=== PATIENT | female | born 1985 | race African-American/Black ===

== ENCOUNTER 2016-11-04 18:06 | Observation (INO) | payer MEDICAID ==
[2016-11-04] VITALS (12 sets, daily range): BP systolic 114–155; BP diastolic 58–96; PULSE 93–191; RESP 15–34; TEMP 98–98.3; O2SAT 95–100
[~2016-11-04] VITALS: Ht 160 cm; Wt 105.0 kg
[~2016-11-04 18:06] MED LIST: ALBU8I INH; NAPR-503 PO; PRED20 PO
[2016-11-04] MEDS ORDERED: SODIUM CHLORIDE 0.9% FLUSH 5 ML FLUSH IVF PRN (18:30)
[2016-11-04] MEDS ORDERED: methylPREDNISolone SOD SUCC 125 MG/2 ML VIAL IVP ONE (18:30)
[2016-11-04] MEDS ORDERED: VENTAER INH (18:32)
[2016-11-04] MEDS: RESP: ALBUTEROL 2.5 MG/IPRATROPIUM 0.5 MG NEB (SCH) INH (18:35)
--- NOTE | 2016-11-04 18:37 | PD ---
HPI Chief Complaint: Respiratory Symptoms Time Seen by Provider: 18:33 Travel History International Travel<30 days: No Contact w/Intl Traveler<30days: No Traveled to known affect area: No History of Present Illness HPI Patient is a 31-year-old female presenting to emergency for evaluation of shortness of breath, cough. Patient states she wasn't feeling well last night, the coughing and the shortness of breath was worse this morning and has progressed throughout the day. She reports chest pain with coughing. She denies any nausea, vomiting, fevers, diarrhea, abdominal pain. Patient reports a history of asthma and has been using her inhaler all day with no significant improvement in her symptoms. The last time she used it was 30 minutes prior to arrival in the medical bed. [facility] Past Medical History Asthma: Yes Thyroid Disease: Yes ?: Not : 5 Para: 4 Miscarriage: 1 Tubal Ligation: Yes Past Surgical History Section: Yes (2) Social History Alcohol Use: Yes (OCC) Tobacco Use: No Substance Use: Yes Allergies-Medications (Allergen,Severity, Reaction): Coded Allergies: Iodine (Verified Allergy, Severe, 11/04/16) Latex (Verified Allergy, Severe, 11/04/16) Shellfish (Verified Allergy, Severe, 11/04/16) Reported Meds & Prescriptions Reported Meds & Active Scripts Active Reported Ventolin Hfa 18 GM Inh (Albuterol Sulfate) 90 Mcg/Act Aer 1 Puff INH Q4H PRN Review of Systems Except as stated in HPI: all other systems reviewed are Neg General / Constitutional: Positive: Chills, Other (hot and cold flashes) HENT: No: Headaches, Lightheadedness Cardiovascular: Positive: Tachycardia, No: Chest Pain or Discomfort, Dyspnea on exertion Respiratory: Positive: Cough, Shortness of Breath, Wheezing, Pleuritic Pain Gastrointestinal: No: Nausea, Vomiting, Diarrhea, Abdominal Pain Musculoskeletal: No: Myalgias Neurologic: No: Dizziness, Focal Abnormalities Physical Exam Narrative GENERAL: Well developed, well-nourished, alert female. No acute distress SKIN: Warm and dry. HEAD: Atraumatic. Normocephalic. EYES: Pupils equal and round. No scleral icterus. No injection or drainage. ENT: No nasal bleeding or discharge. Mucous membranes pink and moist. NECK: Trachea midline. No JVD. CARDIOVASCULAR: Tachycardic. No murmur appreciated. RESPIRATORY: No accessory muscle use. Tachypneic, diminished in bases with scattered expiratory wheezing. GASTROINTESTINAL: Abdomen soft, non-tender, nondistended. Hepatic and splenic margins not palpable. MUSCULOSKELETAL: No obvious deformities. No clubbing. No cyanosis. No edema. NEUROLOGICAL: Awake and alert. No obvious cranial nerve deficits. Motor grossly within normal limits. Normal speech. PSYCHIATRIC: Appropriate mood and affect; insight and judgment normal. Data Data Last Documented VS Vital Signs Date Time Temp Pulse Resp B/P Pulse Ox O2 Delivery O2 Flow Rate FiO2 11/04/16 20:08 120 18 126/61 97 Room Air 11/04/16 18:36 21 11/04/16 18:11 98.3 Orders Complete Blood Count With Diff (11/04/16 18:30) Comprehensive Metabolic Panel (11/04/16 18:30) D-Dimer (11/04/16 18:30) Magnesium (Mg) (11/04/16 18:30) Influenzae A/B Antigen (11/04/16 18:30) Iv Access Insert/Monitor (11/04/16 18:30) Electrocardiogram (11/04/16 18:30) Ecg Monitoring (11/04/16 18:30) Oximetry (11/04/16 18:30) Chest, Single Ap (11/04/16 18:30) Sodium Chloride 0.9% Flush (Ns Flush) (11/04/16 18:30) Methylprednisolone So Succ Inj (Solumedr (11/04/16 18:30) Albuterol-Ipratropium Neb (Duoneb Neb) (11/04/16 18:30) Lactic Acid (11/04/16 18:39) Ckmb (Isoenzyme) Profile (11/04/16 18:54) Troponin I (11/04/16 18:54) B-Type Natriuretic Peptide (11/04/16 18:54) Thyroid Stimulating Hormone (11/04/16 18:54) Free Thyroxine (T4) (11/04/16 18:54) Diltiazem Inj (Cardizem Inj) (11/04/16 19:00) Ondansetron Inj (Zofran Inj) (11/04/16 19:00) Sodium Chlor 0.9% 1000 Ml Inj (Ns 1000 M (11/04/16 19:00) CKMB (11/04/16 18:30) CKMB% (11/04/16 18:30) Sodium Chlor 0.9% 1000 Ml Inj (Ns 1000 M (11/04/16 20:45) Blood Culture (11/04/16 20:40) Ceftriaxone Inj (Rocephin Inj) (11/04/16 20:40) Azithromycin Inj (Zithromax Inj) (11/04/16 20:40) Admit Order (Ed Use Only) (11/04/16 21:03) Labs Laboratory Tests Test 11/04/16 18:30 White Blood Count 5.1 TH/MM3 Red Blood Count 5.11 MIL/MM3 Hemoglobin 12.4 GM/DL Hematocrit 38.7 % Mean Corpuscular Volume 75.8 FL Mean Corpuscular Hemoglobin 24.2 PG Mean Corpuscular Hemoglobin 32.0 % Concent Red Cell Distribution Width 14.0 % Platelet Count 160 TH/MM3 Mean Platelet Volume 9.8 FL Neutrophils (%) (Auto) 54.7 % Lymphocytes (%) (Auto) 26.5 % Monocytes (%) (Auto) 16.2 % Eosinophils (%) (Auto) 2.2 % Basophils (%) (Auto) 0.4 % Neutrophils # (Auto) 2.8 TH/MM3 Lymphocytes # (Auto) 1.4 TH/MM3 Monocytes # (Auto) 0.8 TH/MM3 Eosinophils # (Auto) 0.1 TH/MM3 Basophils # (Auto) 0.0 TH/MM3 CBC Comment AUTO DIFF Differential Comment AUTO DIFF CONFIRMED D-Dimer Quantitative (PE/DVT) 0.31 MG/L FEU Sodium Level 136 MEQ/L Potassium Level 3.6 MEQ/L Chloride Level 103 MEQ/L Carbon Dioxide Level 23.9 MEQ/L Anion Gap 9 MEQ/L Blood Urea Nitrogen 5 MG/DL Creatinine 0.66 MG/DL Estimat Glomerular Filtration 126 ML/MIN Rate Random Glucose 135 MG/DL Lactic Acid Level 2.4 mmol/L Calcium Level 8.8 MG/DL Magnesium Level 1.8 MG/DL Total Bilirubin 0.2 MG/DL Aspartate Amino Transf 16 U/L (AST/SGOT) Alanine Aminotransferase 21 U/L (ALT/SGPT) Alkaline Phosphatase 125 U/L Total Creatine Kinase 110 U/L Creatine Kinase MB LESS THAN 0.5 NG/ML Troponin I 0.02 NG/ML B-Type Natriuretic Peptide 126 PG/ML Total Protein 8.5 GM/DL Albumin 3.1 GM/DL Free Thyroxine 2.36 NG/DL Thyroid Stimulating Hormone LESS THAN 3rd Gen 0.005 uIU/ML MDM Medical Decision Making Medical Screen Exam Complete: Yes Emergency Medical Condition: Yes Interpretation(s) Last Impressions Chest X-Ray 11/04/16 1830 Signed Impressions: Service Date/Time: Friday, November 04, 2016 18:44 - CONCLUSION: Normal examination. Dino Gutierrez MD Laboratory Tests Test 11/04/16 18:30 White Blood Count 5.1 TH/MM3 Red Blood Count 5.11 MIL/MM3 Hemoglobin 12.4 GM/DL Hematocrit 38.7 % Mean Corpuscular Volume 75.8 FL Mean Corpuscular Hemoglobin 24.2 PG Mean Corpuscular Hemoglobin 32.0 % Concent Red Cell Distribution Width 14.0 % Platelet Count 160 TH/MM3 Mean Platelet Volume 9.8 FL Neutrophils (%) (Auto) 54.7 % Lymphocytes (%) (Auto) 26.5 % Monocytes (%) (Auto) 16.2 % Eosinophils (%) (Auto) 2.2 % Basophils (%) (Auto) 0.4 % Neutrophils # (Auto) 2.8 TH/MM3 Lymphocytes # (Auto) 1.4 TH/MM3 Monocytes # (Auto) 0.8 TH/MM3 Eosinophils # (Auto) 0.1 TH/MM3 Basophils # (Auto) 0.0 TH/MM3 CBC Comment AUTO DIFF Differential Comment AUTO DIFF CONFIRMED D-Dimer Quantitative (PE/DVT) 0.31 MG/L FEU Sodium Level 136 MEQ/L Potassium Level 3.6 MEQ/L Chloride Level 103 MEQ/L Carbon Dioxide Level 23.9 MEQ/L Anion Gap 9 MEQ/L Blood Urea Nitrogen 5 MG/DL Creatinine 0.66 MG/DL Estimat Glomerular Filtration 126 ML/MIN Rate Random Glucose 135 MG/DL Lactic Acid Level 2.4 mmol/L Calcium Level 8.8 MG/DL Magnesium Level 1.8 MG/DL Total Bilirubin 0.2 MG/DL Aspartate Amino Transf 16 U/L (AST/SGOT) Alanine Aminotransferase 21 U/L (ALT/SGPT) Alkaline Phosphatase 125 U/L Total Creatine Kinase 110 U/L Creatine Kinase MB LESS THAN 0.5 NG/ML Troponin I 0.02 NG/ML B-Type Natriuretic Peptide 126 PG/ML Total Protein 8.5 GM/DL Albumin 3.1 GM/DL Free Thyroxine 2.36 NG/DL Thyroid Stimulating Hormone LESS THAN 3rd Gen 0.005 uIU/ML Vital Signs Date Time Temp Pulse Resp B/P Pulse Ox O2 Delivery O2 Flow Rate FiO2 11/04/16 18:27 123 20 100 Room Air 11/04/16 18:11 98.3 146 15 155/96 100 Differential Diagnosis PE versus pneumonia versus bronchitis versus asthma exacerbation versus influenza Narrative Course Patient is a 31-year-old female presenting to the emergency for evaluation of shortness of breath and cough. Patient's symptoms started last night with a general feeling of malaise, they progressed this morning and throughout the day. She has been using her inhaler all day, with no relief of her symptoms. Patient reports a dry cough, she denies any nausea, vomiting, fevers. She presented tachycardic with a rate in the 130s. D-dimer is negative. CBC is unremarkable Lactic acid 2.4 Troponin 0.02 TSH is 0.005 Free T4 is 2.36 Diltiazem 20 mg IV 1 dose ordered by my attending physician. Patient's heart rate is currently 115. Resting comfortably. Patient continues to feel short of breath, she continues to be tachycardic. For these reasons we will seek admission for observation. Discussed with Dr. Pina who accepted admission. Diagnosis Primary Impression: Tachycardia Additional Impressions: Shortness of breath Hyperthyroidism Admitting Information Admitting Physician Requests: Observation Condition: Stable Monica Hilton Nov 04, 2016 18:37
[2016-11-04 18:54] LABS: AUTOMATED NEUTROPHIL # 2.8 TH/MM3 (1.8-7.7); BASOPHIL % 0.4 % (0.0-2.0); EOSINOPHIL # 0.1 TH/MM3 (0-0.4); EOSINOPHIL % 2.2 % (0.0-4.0); HEMATOCRIT 38.7 % (35.0-46.0); LYMPH % 26.5 % (9.0-44.0); LYMPHOCYTE # 1.4 TH/MM3 (1.0-4.8); MEAN CELL VOLUME 75.8 FL (80.0-100.0); MEAN CORPUSCULAR HEMOGLOBIN 24.2 PG (27.0-34.0); MONO % 16.2 % (0.0-8.0); NEUT % 54.7 % (16.0-70.0); PLATELET COUNT 160 TH/MM3 (150-450); RED BLOOD COUNT 5.11 MIL/MM3 (4.00-5.30); WHITE BLOOD COUNT 5.1 TH/MM3 (4.0-11.0)
[2016-11-04 18:56] LABS: HEMO FLAGS AUTO DIFF
[2016-11-04] MEDS ORDERED: DILTIAZEM HCL 25 MG/5 ML VIAL IV ONE (19:00)
[2016-11-04] MEDS ORDERED: SODIUM CHLOR 0.9% 1000 ML INJ 1,000 ML IV ONE ×2 (19:00→20:45)
[2016-11-04] MEDS ORDERED: ONDANSETRON HCL 4 MG/2 ML VIAL IV PUSH ONE (19:00)
--- NOTE | 2016-11-04 19:07 | RADRPT ---
EXAM DATE/TIME: 11/04/2016 18:44 [place] COMPARISON: CHEST SINGLE AP, November 26, 2014, 17:36. INDICATIONS : Short of Breath, Cough. MEDICAL HISTORY : Asthma. SURGICAL HISTORY : None. ENCOUNTER: Initial ACUITY: 1 day PAIN SCORE: 8/10 LOCATION: Bilateral chest FINDINGS: A single view of the chest demonstrates the lungs to be symmetrically aerated without evidence of mas s, infiltrate or effusion. The cardiomediastinal contours are unremarkable. Osseous structures are intact. CONCLUSION: Normal examination. Dino Gutierrez MD on November 04, 2016 at 19:05 Board Certified Radiologist. This report was verified electronically.
[2016-11-04 19:17] LABS: ANION GAP 9 MEQ/L (5-15); AST (GOT) 16 U/L (15-37); BICARBONATE 23.9 MEQ/L (21.0-32.0); BLOOD UREA NITROGEN 5 MG/DL (7-18); CHLORIDE 103 MEQ/L (98-107); GLOMERULAR FILTRATION RATE 126 ML/MIN (>89); MAGNESIUM 1.8 MG/DL (1.5-2.5); POTASSIUM 3.6 MEQ/L (3.5-5.1); SODIUM (NA) 136 MEQ/L (136-145)
[2016-11-04 19:20] LABS: ALKALINE PHOSPHATASE 125 U/L (45-117); ALT (GPT) 21 U/L (10-53); TOTAL BILIRUBIN ADULT 0.2 MG/DL (0.2-1.0)
[2016-11-04 19:40] LABS: SCAN/DIFF AUTO DIFF CONFIRMED
[2016-11-04 19:46] LABS: CREATINE KINASE 110 U/L (26-192); FREE T4 2.36 NG/DL (0.76-1.46)
[2016-11-04 19:58] LABS: CKMB LESS THAN 0.5 NG/ML (0.5-3.6)
[2016-11-04] MEDS ORDERED: AZITHROMYCIN INJ 500 MG in SODIUM CHLOR 0.9% 250 ML INJ 250 ML IV STA (20:40)
[2016-11-04] MEDS ORDERED: cefTRIAXone INJ 2,000 MG in SODIUM CHLORIDE 0.9% INJ 100 ML IV STA (20:40)
--- NOTE | 2016-11-04 21:20 | HHI.HP ---
HPI [facility] Primary Care Physician [facility] Admission Diagnosis tachycardia, shortness of breath, hyperthyroid Diagnoses: (1) Asthma Diagnosis: Principal (2) Hyperthyroidism Diagnosis: Principal (3) Tachycardia Diagnosis: Principal Travel History International Travel<30 Days: No Contact w/Intl Traveler <30 Da: No Traveled to Known Affected Are: No History of Present Illness This is a 31-year-old female with a PMH of Asthma and Hyperthyroidism who presented to the ER with complaints of SOB and nonproductive cough x1 day. States symptoms have been getting progressively worse since yesterday. Denies fever or chills. Has been using inhaler w/ minimal improvement. On arrival, BP 155/96, HR 146, O2 sat 100% on RA, Afebrile. While in ER, HR 190's s/p Cardizem w/ some improvement. +wheezing on exam, s/p Solu-Medrol and DuoNeb in ER. Persistent tachycardia w/ HR 110-120's. WBC normal. Chemistry normal. Lactic Acid 2.4. Troponin negative. TSH < 0.005, Free T4 elevated at 2.36. CXR w/ no acute findings. Review of Systems Except as stated in HPI: all other systems reviewed are Neg ROS: 14 point review of systems otherwise negative. Past Family Social History Past Medical History PMH: Asthma and Hyperthyroidism Past Surgical History PAST SURGICAL HISTORY: Allergies: Coded Allergies: Iodine (Verified Allergy, Severe, 11/04/16) Latex (Verified Allergy, Severe, 11/04/16) Shellfish (Verified Allergy, Severe, 11/04/16) Family History PAST FAMILY HISTORY: Reviewed. No h/o DM or CAD Social History PAST SOCIAL HISTORY: Occasional alcohol. Negative for drugs. History of Substance Abuse. Physical Exam Vital Signs Vital Signs Date Time Temp Pulse Resp B/P Pulse Ox O2 Delivery O2 Flow Rate FiO2 11/04/16 20:08 120 18 126/61 97 Room Air 11/04/16 19:43 119 11/04/16 19:31 124 11/04/16 19:14 137 11/04/16 19:06 148 11/04/16 19:03 136 20 152/92 100 Room Air 11/04/16 18:45 191 11/04/16 18:37 34 98 Room Air 11/04/16 18:36 97 21 11/04/16 18:27 123 20 100 Room Air 11/04/16 18:11 98.3 146 15 155/96 100 Physical Exam PE: GENERAL: Middle-aged black female in no acute distress. HEENT: PERRLA, EOMI. No scleral icterus or conjunctival pallor. No lid lag or facial droop. CARDIOVASCULAR: Regular rate and rhythm. No obvious murmurs to auscultation. No chest tenderness to palpation. RESPIRATORY: No obvious rhonchi, occasional wheezing. Clear to auscultation. Breath sounds equal bilaterally. GASTROINTESTINAL: Abdomen soft, non-tender, nondistended. BS normal. MUSCULOSKELETAL: Extremities without clubbing, cyanosis, or edema. No obvious deformities. NEUROLOGICAL: Awake, alert and oriented x4. No focal neurologic deficits. Moving both upper and lower extremities spontaneously. Laboratory Laboratory Tests Test 11/04/16 18:30 White Blood Count 5.1 Red Blood Count 5.11 Hemoglobin 12.4 Hematocrit 38.7 Mean Corpuscular Volume 75.8 Mean Corpuscular Hemoglobin 24.2 Mean Corpuscular Hemoglobin 32.0 Concent Red Cell Distribution Width 14.0 Platelet Count 160 Mean Platelet Volume 9.8 Neutrophils (%) (Auto) 54.7 Lymphocytes (%) (Auto) 26.5 Monocytes (%) (Auto) 16.2 Eosinophils (%) (Auto) 2.2 Basophils (%) (Auto) 0.4 Neutrophils # (Auto) 2.8 Lymphocytes # (Auto) 1.4 Monocytes # (Auto) 0.8 Eosinophils # (Auto) 0.1 Basophils # (Auto) 0.0 CBC Comment AUTO DIFF Differential Comment AUTO DIFF CONFIRMED D-Dimer Quantitative (PE/DVT) 0.31 Sodium Level 136 Potassium Level 3.6 Chloride Level 103 Carbon Dioxide Level 23.9 Anion Gap 9 Blood Urea Nitrogen 5 Creatinine 0.66 Estimat Glomerular Filtration 126 Rate Random Glucose 135 Lactic Acid Level 2.4 Calcium Level 8.8 Magnesium Level 1.8 Total Bilirubin 0.2 Aspartate Amino Transf 16 (AST/SGOT) Alanine Aminotransferase 21 (ALT/SGPT) Alkaline Phosphatase 125 Total Creatine Kinase 110 Creatine Kinase MB LESS THAN 0.5 Troponin I 0.02 B-Type Natriuretic Peptide 126 Total Protein 8.5 Albumin 3.1 Free Thyroxine 2.36 Thyroid Stimulating Hormone LESS THAN 3rd Gen 0.005 Date/Time Procedure Status Source Growth 11/04/16 20:45 Aerobic Blood Culture Received Blood Peripheral Pending 11/04/16 20:45 Anaerobic Blood Culture Received Blood Peripheral Pending 11/04/16 18:40 Influenza Types A,B Antigen (KIT) - Final Complete Nasal Washing NEGATIVE FOR FLU A AND B ANTIGEN.... Result Diagram: 11/04/16182911/04/161829 Assessment and Plan Problem List: (1) Asthma ICD Code: J45.909 Status: Acute (2) Tachycardia ICD Code: R00.0 Status: Acute (3) Hyperthyroidism ICD Code: E05.90 Status: Acute Assessment and Plan A/P: 1. Asthma: +wheezing/non-productive cough, minimal improvement w/ home MDI. Afebrile, no leukocytosis, CXR w/ no acute findings, images reviewed by me. S/ p Solu-Medrol, DuoNeb, Rocephin/Zithro in ER. Continue w/ Solu-Medrol, DuoNeb, Symbicort, Mucinex, Rocephin/Zithro. 2. Tachycardia: Likely multifactorial-secondary to acute respiratory distress , DuoNeb therapy and Hyperthyroidism. HR 190's while in ER, s/p Cardizem IV x1 w/ minimal improvement. HR now 93. Will continue to monitor. IVF for hydration. 3. Hyperthyroidism: TSH <0.005, Free T4 2.36. Further work-up/eval as outpatient. Start Metoprolol 25mg bid. 4. DVT Prophylaxis: SCD/Teds. 5. Social work for d/c planning as needed. 6. Case discussed w/ ER physician at length. Alka Pina MD Nov 04, 2016 21:20
[2016-11-04] MEDS ORDERED: ACETAMINOPHEN 325 MG TAB PO PRN (21:30)
[2016-11-04] MEDS ORDERED: ACETAMINOPHEN/HYDROcodone 325 MG/10 MG TAB PO PRN (21:30)
[2016-11-04] MEDS ORDERED: ACETAMINOPHEN/HYDROcodone 325 MG/5 MG TAB PO PRN (21:30)
[2016-11-04] MEDS ORDERED: BISACODYL 10 MG SUPP PR PRN (21:30)
[2016-11-04] MEDS ORDERED: SODIUM CHLORIDE 0.9% FLUSH 5 ML FLUSH FLUSH PRN (21:30)
[2016-11-04] MEDS ORDERED: ONDANSETRON HCL 4 MG/2 ML VIAL IVP PRN (21:30)
[2016-11-04] MEDS: METOPROLOL TARTRATE 25 MG TAB PO SCH (21:35)
[2016-11-05] MEDS: methylPREDNISolone SOD SUCC 40 MG/1 ML VIAL IV PUSH SCH ×2 (00:14→05:58)
[2016-11-05 03:47] LABS: AUTOMATED NEUTROPHIL # 3.9 TH/MM3 (1.8-7.7); BASOPHIL % 0.6 % (0.0-2.0); HEMATOCRIT 37.5 % (35.0-46.0); LYMPH % 6.6 % (9.0-44.0); LYMPHOCYTE # 0.3 TH/MM3 (1.0-4.8); MEAN CELL VOLUME 75.8 FL (80.0-100.0); MEAN CORPUSCULAR HEMOGLOBIN 24.2 PG (27.0-34.0); MONO % 1.9 % (0.0-8.0); NEUT % 90.9 % (16.0-70.0); PLATELET COUNT 146 TH/MM3 (150-450); RED BLOOD COUNT 4.94 MIL/MM3 (4.00-5.30); RED CELL DISTRIBUTION WIDTH 14.2 % (11.6-17.2); WHITE BLOOD COUNT 4.3 TH/MM3 (4.0-11.0)
[2016-11-05 03:49] LABS: HEMO FLAGS AUTO DIFF
[2016-11-05 04:24] VITALS: BP 128/89; PULSE 97; RESP 18; TEMP 98.8; O2SAT 97
[2016-11-05 04:29] LABS: OVALOCYTES 1+ (NORMAL); SCAN/DIFF AUTO DIFF CONFIRMED
[2016-11-05 04:59] LABS: ALKALINE PHOSPHATASE 113 U/L (45-117); ALT (GPT) 19 U/L (10-53); ANION GAP 8 MEQ/L (5-15); AST (GOT) 11 U/L (15-37); BLOOD UREA NITROGEN 7 MG/DL (7-18); CHLORIDE 106 MEQ/L (98-107); GLOMERULAR FILTRATION RATE 120 ML/MIN (>89); POTASSIUM 4.3 MEQ/L (3.5-5.1); SODIUM (NA) 137 MEQ/L (136-145); TOTAL BILIRUBIN ADULT 0.2 MG/DL (0.2-1.0)
[2016-11-05] MEDS ORDERED: GLUCAGON 1 MG/ML VIAL OTHER PRN (07:15)
[2016-11-05] MEDS ORDERED: DEXTROSE 50% IN WATER 50 ML VIAL(D50) IV PUSH PRN (07:15)
[2016-11-05] MEDS: RESP: IPRATROPIUM 0.5 MG/2.5 ML NEB NEB SCH ×2 (07:30→10:51)
[2016-11-05] MEDS: RESP: ALBUTEROL 2.5 MG/IPRATROPIUM 0.5 MG NEB (PRN) NEB ×2 (07:30→13:48)
[2016-11-05] MEDS ORDERED: predniSONE 20 MG TAB PO SCH (09:00)
[2016-11-05] MEDS ORDERED: BUDESONIDE-FORMOTEROL 160/4.5 MCG INHALER INH SCH (09:00)
[2016-11-05] MEDS ORDERED: guaiFENesin E.R. 600 MG TAB PO SCH (09:00)
[2016-11-05] MEDS ORDERED: SODIUM CHLORIDE 0.9% FLUSH 5 ML FLUSH FLUSH SCH (09:00)
[2016-11-05] MEDS: METOPROLOL TARTRATE 25 MG TAB PO SCH (09:09)
--- NOTE | 2016-11-05 09:11 | HHI.PR ---
Subjective Remarks Follow-up for shortness of breath and cough. The patient had been having nonproductive cough and shortness of breath since yesterday. She continues to have nonproductive coughing overnight. Shortness of breath and wheezing are improving. She had some anterior chest wall discomfort yesterday with deep breathing, none today. She states her heart rate always runs high. She states her PCP is following her hyperthyroidism and she has repeat labs today. She has an albuterol inhaler at home, but no nebulizer. She states that she will pay for nebulizer herself if she is given a prescription for 1. Objective Vitals Vital Signs Date Time Temp Pulse Resp B/P Pulse Ox O2 Delivery O2 Flow Rate FiO2 11/05/16 04:24 98.8 97 18 128/89 97 11/04/16 22:29 98.0 93 18 114/58 95 11/04/16 22:00 97 11/04/16 20:08 120 18 126/61 97 Room Air 11/04/16 19:43 119 11/04/16 19:31 124 11/04/16 19:14 137 11/04/16 19:06 148 11/04/16 19:03 136 20 152/92 100 Room Air 11/04/16 18:45 191 11/04/16 18:37 34 98 Room Air 11/04/16 18:36 97 21 11/04/16 18:27 123 20 100 Room Air 11/04/16 18:11 98.3 146 15 155/96 100 Result Diagram: 11/05/16 0336 11/05/16 0336 Imaging Last Impressions Chest X-Ray 11/04/16 1830 Signed Impressions: Service Date/Time: Friday, November 04, 2016 18:44 - CONCLUSION: Normal examination. Dino Gutierrez MD Objective Remarks GENERAL: Pleasant. Well-developed well-nourished morbidly obese.. In no acute distress. SKIN: Warm and dry. No lesions noted. HEENT: Normocephalic. Pupils equal and round. Mucous membranes pink and moist. CARDIOVASCULAR: Regular rate and rhythm. No murmur appreciated. RESPIRATORY: No accessory muscle use. Clear to auscultation. Breath sounds equal bilaterally. No wheezing. GASTROINTESTINAL: Abdomen soft, non-tender, nondistended. Bowel sounds x4. MUSCULOSKELETAL: No obvious deformities. No clubbing or cyanosis. No edema. NEUROLOGICAL: Awake and alert. No focal neurological deficits. Moves upper and lower extremities spontaneously. Normal speech. PSYCHIATRIC: Appropriate mood and affect; insight and judgment normal. A/P Problem List: (1) Asthma ICD Code: J45.909 Status: Chronic (2) Tachycardia ICD Code: R00.0 Status: Resolved (3) Hyperthyroidism ICD Code: E05.90 Status: Chronic (4) Shortness of breath ICD Code: R06.02 Status: Acute Assessment and Plan 31-year-old female with a PMH of Asthma and Hyperthyroidism who presented with complaints of SOB and nonproductive cough x1 day Bronchitis: Nonproductive cough. Afebrile with no leukocytosis. Chest x-ray reviewed and unremarkable. The Fenesin. Acapella. Supportive care. Asthma: With acute exacerbation. Patient had wheezing upon admission yesterday , resolved with IV steroids. Change IV steroids to oral prednisone pulse dose. Scheduled ipratropium with tachycardia. DuoNeb nebs as needed. Symbicort. Tachycardia: Likely multifactorial-secondary to acute respiratory distress, DuoNeb therapy and Hyperthyroidism. HR 190's while in ER, s/p Cardizem IV x1 w / minimal improvement. Patient also states she has passed her rate at baseline. Started on metoprolol overnight, caution with asthma. Heart rate currently 90s. Will continue to monitor. IVF for hydration. Atypical chest pain: Short episode yesterday with breathing, likely secondary to the above, doubt ACS or PE.. Trop within normal limits. D-dimer within normal limits. EKG with sinus tachycardia, arterial for LVH, no significant ST changes from previous. Hyperthyroidism: TSH <0.005, Free T4 2.36. Continue further work-up/eval as outpatient. Started Metoprolol 25mg bid. Hyperglycemia: Likely secondary to stress reaction and steroids. Cover with SSI with Accu-Cheks. Check hemoglobin A1c, follow up with PCP. Decrease steroids. DVT Prophylaxis: SCD/Teds. Discharge Planning Plan for discharge later today if patient remains stable. Problem Qualifiers (1) Asthma: Qualified Code: J45.901 - Asthma with acute exacerbation, unspecified asthma severity Krzysztof Wheeler Nov 05, 2016 09:10
[2016-11-05] MEDS ORDERED: PRED20 PO (09:13)
[2016-11-05] MEDS ORDERED: NEBULIZER1 MI1 (09:13)
[2016-11-05] MEDS ORDERED: SYMB160A INH (09:13)
[2016-11-05] MEDS ORDERED: IPRASOL NEB (09:13)
[2016-11-05] MEDS ORDERED: METO25TA3 PO (09:13)
[2016-11-05] MEDS ORDERED: INSULIN ASPART SUPPLEMENTAL SCALE SQ SCH (11:00)
--- NOTE | 2016-11-05 14:39 | EKG ---
Date Performed: 11/04/2016 Time Performed: 18:57:13 PTAGE: 31 years EKG: SINUS TACHYCARDIA WITH OCCASIONAL SUPRAVENTRICULAR PREMATURE COMPLEXES LEFT VENTRICULAR HYP ERTROPHY AND ST-T CHANGE ABNORMAL ECG Compared to prior tracing no significant change PREVIOUS TRACING : 11/26/2014 17.19 DOCTOR: Fabricio Horta Interpretating Date/Time 11/05/2016 14:38:11
[2016-11-06 08:44] LABS: HEMOGLOBIN A1a 1.1 %; HEMOGLOBIN A1b 1.7 %; HEMOGLOBIN Ao 83.8 %; HEMOGLOBIN LA1C 3.1 %; HEMOGLOBIN P3 5.6 %
== END 2016-11-05 15:33 | disposition home or self-care (01) ==
LOC: NEPE 18:06 → NEDA 21:04 → NEPFCDU 22:09
PROVIDERS: ADMIT Hospitalist; ATTEND Hospitalist
DX: J45.909 Unspecified asthma, uncomplicated (principal); R00.0 Tachycardia, unspecified; E05.90 Thyrotoxicosis, unspecified without thyrotoxic crisis or storm; R06.02 Shortness of breath; R05 Cough
CPT/HCPCS: 71010; 80053; 82550; 82552; 82948; 83036; 83605; 83735; 83880; 84439; 84443; 84484; 85025; 85379; 87040; 87804; 93005; 94640; 94664; 94667; 94668; 96361; 96374; 96375; 99285; G0378; J0456; J0696; J1815; J2405; J2920; J2930; J7030; J7050; J7512; J7644

== ENCOUNTER 2016-12-25 12:07 | Emergency (ER) | payer MEDICAID ==
[~2016-12-25] VITALS: Ht 160 cm; Wt 106.5 kg
[~2016-12-25 12:07] MED LIST changes: -ALBU8I INH; +IPRASOL NEB; +METO25TA3 PO; -NAPR-503 PO; +NEBULIZER1 MI1; +SYMB160A INH; +VENTAER INH
[2016-12-25 12:09] VITALS: BP 144/97; PULSE 105; RESP 16; TEMP 97.8; O2SAT 98
--- NOTE | 2016-12-25 12:26 | PD ---
Physical Exam Time Seen by Provider: 12:22 Narrative 31yo F c/o Vomiting and diarrhea this morning. Onset of low midsternal chest pain also. Denies fever. LMP December 06. Patient stable. Patient seen in triage. Awaiting bed placement. Data Data Last Documented VS Vital Signs Date Time Temp Pulse Resp B/P Pulse Ox O2 Delivery O2 Flow Rate FiO2 12/25/16 12:09 97.8 105 16 144/97 98 Orders Electrocardiogram (12/25/16 ) MDM Supervised Visit with WINSTON: Flor Doll Dec 25, 2016 12:26
[2016-12-25] MEDS ORDERED: LIDOCAINE VISCOUS 2% SOLN 15 ML UDC PO ONE (13:30)
[2016-12-25] MEDS ORDERED: ALUMINUM/MAGNESIUM/SIMETH 30 ML CUP PO ONE (13:30)
[2016-12-25] MEDS ORDERED: FAMOTIDINE 20 MG TAB PO ONE (13:30)
[2016-12-25] MEDS ORDERED: ZOFR4TAB3 SL (13:33)
[2016-12-25] MEDS ORDERED: RANI150C PO (13:33)
--- NOTE | 2016-12-25 13:34 | PD ---
HPI Chief Complaint: Chest Pain Time Seen by Provider: 12:52 Travel History International Travel<30 days: No Contact w/Intl Traveler<30days: No Traveled to known affect area: No History of Present Illness HPI Skin otherwise healthy 31-year-old woman presents emergency department complaining of epigastric chest pain. States she is feeling well and she developed nausea vomiting and diarrhea this morning. Diarrhea was copious watery emesis. She had a little bit of blood when she wiped after some large liquid bowel movement. Since vomiting she's developed some gastric burning chest pain. Nausea and vomiting and diarrhea most resolved but she still has some burning chest pain. She otherwise has been feeling generally well and healthy. No definite sick contacts. No recent travel. No unusual or undercooked foods. History Past Medical History Narrative Medical Enlarged thyroid Asthma LMP: 12/06/2016 : 5 Para: 4 Social History Alcohol Use: Yes (OCC) Tobacco Use: No Allergies-Medications (Allergen,Severity, Reaction): Coded Allergies: Iodine (Verified Allergy, Severe, 12/25/16) Latex (Verified Allergy, Severe, 12/25/16) Shellfish (Verified Allergy, Severe, 12/25/16) Reported Meds & Prescriptions Reported Meds & Active Scripts Active Nebulizer 1 Mis Mis 1 Ea .ROUTE DIRECTED Metoprolol Tartrate 25 Mg Tab 25 Mg PO Q12HR Duoneb (Ipratropium-Albuterol Neb) 0.5-2.5 Mg/3 Ml Neb 1 Ampule NEB Q6HR PRN Symbicort Inh (Budesonide/Formoterol Fumarate) 160-4.5 Mcg/Act Aero 1 Puff INH Q12HR Review of Systems Except as stated in HPI: all other systems reviewed are Neg Physical Exam Narrative GENERAL: Well-appearing 31-year-old woman, no acute distress. SKIN: Focused skin assessment warm/dry. HEAD: Atraumatic. Normocephalic. EYES: Pupils equal and round. No scleral icterus. No injection or drainage. ENT: No nasal bleeding or discharge. Mucous membranes pink and moist. NECK: Trachea midline. No JVD. CARDIOVASCULAR: Regular rate and rhythm. No murmur appreciated. RESPIRATORY: No accessory muscle use. Clear to auscultation. Breath sounds equal bilaterally. GASTROINTESTINAL: Abdomen soft, non-tender, nondistended. Hepatic and splenic margins not palpable. MUSCULOSKELETAL: No obvious deformities. No clubbing. No cyanosis. No edema. NEUROLOGICAL: Awake and alert. No obvious cranial nerve deficits. Motor grossly within normal limits. Normal speech. PSYCHIATRIC: Appropriate mood and affect; insight and judgment normal. Data Data Last Documented VS Vital Signs Date Time Temp Pulse Resp B/P Pulse Ox O2 Delivery O2 Flow Rate FiO2 12/25/16 12:46 96 Room Air 12/25/16 12:09 97.8 105 16 144/97 Orders Electrocardiogram (12/25/16 ) Al-Mag Hy-Si 40-40-4 Mg/Ml Liq (Mag-Al P (12/25/16 13:30) Lidocaine 2% Viscous (Xylocaine 2% Visco (12/25/16 13:30) Famotidine (Pepcid) (12/25/16 13:30) MDM Medical Decision Making Medical Screen Exam Complete: Yes Emergency Medical Condition: Yes Differential Diagnosis Gastritis, esophagitis, reflux, other Narrative Course Medical decision-making 31 year-old woman epigastric burning chest pain after nausea vomiting diarrhea. Likely gastroenteritis with some reflux. Recommend supportive treatment. Diagnosis Primary Impression: GERD (gastroesophageal reflux disease) Additional Impression: Gastroenteritis Additional Instructions: Use Zofran as needed for nausea or vomiting. Take ranitidine as prescribed for one week. Return to the emergency department for any worsening pain, trouble breathing, vomiting, or any other new or worsening symptoms. Med/Other Pt SpecificInfo: Prescription(s) given Scripts Ranitidine 150 Mg [id number] Mg PO BID 7 Days Prov:Elieser Fontana MD 12/25/16 Ondansetron Odt (Zofran Odt)4 Mg Tab4 Mg SL Q8HR PRN (Nausea/Vomiting) #15 TAB May substitute non-ODT form. Prov:Elieser Fontana MD 12/25/16 Disposition: 01 DISCHARGE HOME Condition: Stable Elieser Fontana MD Dec 25, 2016 13:34
--- NOTE | 2016-12-26 12:59 | EKG ---
Date Performed: 12/25/2016 Time Performed: 12:40:16 PTAGE: 31 years EKG: Sinus rhythm VOLTAGE CRITERIA FOR LVH NONSPECIFIC T-WAVE ABNORMALITY ABNORMAL ECG PREVIOUS TRACING : 11/04/2016 18.57 Compared to previous tracing, heart rate has decreased, rig ht atrial abnormality is no longer evident. DOCTOR: Rock Rosales Interpretating Date/Time 12/26/2016 12:58:04
== END 2016-12-25 14:29 | disposition home or self-care (01) ==
LOC: NEPD 12:07
DX: K21.9 Gastro-esophageal reflux disease without esophagitis (principal); K52.9 Noninfective gastroenteritis and colitis, unspecified; J45.909 Unspecified asthma, uncomplicated; R94.31 Abnormal electrocardiogram [ECG] [EKG]
CPT/HCPCS: 93005

== ENCOUNTER 2017-01-15 20:07 | Emergency (ER) | payer MEDICAID ==
[~2017-01-15] VITALS: Ht 160 cm; Wt 105.0 kg
[~2017-01-15 20:07] MED LIST changes: -PRED20 PO; +RANI150C PO; -VENTAER INH; +ZOFR4TAB3 SL
[2017-01-15 20:08] VITALS: BP 156/96; PULSE 132; RESP 22; TEMP 97.8; O2SAT 99
[2017-01-15 20:47] VITALS: BP 147/72; PULSE 108; RESP 18; O2SAT 100
--- NOTE | 2017-01-15 21:05 | PD ---
HPI Chief Complaint: Respiratory Symptoms Time Seen by Provider: 21:05 Travel History International Travel<30 days: No Contact w/Intl Traveler<30days: No Traveled to known affect area: No History of Present Illness HPI 31-year-old female with history of asthma came to the emergency room with history of shortness of breath and left-sided chest pain. Patient says that she took her inhaler at 3 PM. She's been having these symptoms since this morning. Currently she feels tight in her chest. She is been hospitalized for her asthma exacerbation in the past. No history of ICU hospitalization. She is not a smoker but smokes weed often. No radiation of her chest pain. No aggravating or relieving factors. No recent long distance travel or prolonged immobilization. [facility] Past Medical History Narrative Medical List of her past medical, surgical, social and family history is reviewed from the nursing note. Asthma: Yes Heart Rhythm Problems: Yes (FAST HEART RATE - METOPROLOL) Diminished Hearing: No Respiratory: Yes (ASTHMA ) Thyroid Disease: Yes Tetanus Vaccination: > 5 Years Influenza Vaccination: No ?: Not LMP: 01/05/17 STARTED ENDED 01/12/17 : 5 Para: 4 Miscarriage: 1 Tubal Ligation: Yes Past Surgical History Surgical History: No Previous Surgery Section: Yes (2) Social History Alcohol Use: Yes (OCC) Tobacco Use: No Substance Use: No Allergies-Medications (Allergen,Severity, Reaction): Coded Allergies: Iodine (Verified Allergy, Severe, 01/15/17) Latex (Verified Allergy, Severe, 01/15/17) Shellfish (Verified Allergy, Severe, 01/15/17) Comments List of her allergies reviewed from the nursing note. Reported Meds & Prescriptions Reported Meds & Active Scripts Active Prednisone 20 Mg Tab 20 Mg PO BID 5 Days Zofran Odt (Ondansetron Odt) 4 Mg Tab 4 Mg SL Q8HR PRN May substitute non-ODT form. Nebulizer 1 Mis Mis 1 Ea .ROUTE DIRECTED Metoprolol Tartrate 25 Mg Tab 25 Mg PO Q12HR Duoneb (Ipratropium-Albuterol Neb) 0.5-2.5 Mg/3 Ml Neb 1 Ampule NEB Q6HR PRN Symbicort Inh (Budesonide/Formoterol Fumarate) 160-4.5 Mcg/Act Aero 1 Puff INH Q12HR Narrative Medication List of her home medications reviewed from the nursing note. Review of Systems Except as stated in HPI: all other systems reviewed are Neg Physical Exam Narrative GENERAL: Awake, alert, moderate distress SKIN: Focused skin assessment warm/dry. HEAD: Atraumatic. Normocephalic. EYES: Pupils equal and round. No scleral icterus. No injection or drainage. ENT: No nasal bleeding or discharge. Mucous membranes pink and moist. NECK: Trachea midline. No JVD. CARDIOVASCULAR: Regular rate and rhythm. No murmur appreciated. RESPIRATORY: Decreased air entry bilaterally, end expiratory wheeze, prolonged expiration GASTROINTESTINAL: Abdomen soft, non-tender, nondistended. Hepatic and splenic margins not palpable. MUSCULOSKELETAL: No obvious deformities. No clubbing. No cyanosis. No edema. NEUROLOGICAL: Awake and alert. No obvious cranial nerve deficits. Motor grossly within normal limits. Normal speech. PSYCHIATRIC: Appropriate mood and affect; insight and judgment normal. Data Data Last Documented VS Vital Signs Date Time Temp Pulse Resp B/P Pulse Ox O2 Delivery O2 Flow Rate FiO2 01/15/17 23:37 105 01/15/17 22:12 21 150/88 100 Nasal Cannula 2 01/15/17 20:08 97.8 Orders Ecg Monitoring (01/15/17 21:23) Iv Access Insert/Monitor (01/15/17 21:23) Oximetry (01/15/17 21:23) Prednisone (Deltasone) (01/15/17 21:30) Albuterol-Ipratropium Neb (Duoneb Neb) (01/15/17 21:30) Sodium Chloride 0.9% Flush (Ns Flush) (01/15/17 21:30) Electrocardiogram (01/15/17 21:23) Basic Metabolic Panel (Bmp) (01/15/17 21:23) Complete Blood Count With Diff (01/15/17 21:23) D-Dimer (01/15/17 21:23) Magnesium (Mg) (01/15/17 21:23) Prothrombin Time / Inr (Pt) (01/15/17 21:23) Troponin I (01/15/17 21:23) Chest, Single Ap (01/15/17 21:23) Bilateral Bp Monitoring (01/15/17 21:23) Oxygen Administration (01/15/17 21:23) Sodium Chloride 0.9% Flush (Ns Flush) (01/15/17 21:30) Methylprednisolone So Succ Inj (Solumedr (01/15/17 21:30) Ketorolac Inj (Toradol Inj) (01/15/17 23:15) Labs Laboratory Tests Test 01/15/17 21:36 White Blood Count 5.7 TH/MM3 Red Blood Count 4.83 MIL/MM3 Hemoglobin 11.6 GM/DL Hematocrit 37.0 % Mean Corpuscular Volume 76.5 FL Mean Corpuscular Hemoglobin 23.9 PG Mean Corpuscular Hemoglobin 31.3 % Concent Red Cell Distribution Width 14.5 % Platelet Count 208 TH/MM3 Mean Platelet Volume 10.3 FL Neutrophils (%) (Auto) 59.6 % Lymphocytes (%) (Auto) 28.8 % Monocytes (%) (Auto) 10.0 % Eosinophils (%) (Auto) 1.4 % Basophils (%) (Auto) 0.2 % Neutrophils # (Auto) 3.4 TH/MM3 Lymphocytes # (Auto) 1.7 TH/MM3 Monocytes # (Auto) 0.6 TH/MM3 Eosinophils # (Auto) 0.1 TH/MM3 Basophils # (Auto) 0.0 TH/MM3 CBC Comment AUTO DIFF Differential Comment AUTO DIFF CONFIRMED Platelet Estimate NORMAL Platelet Morphology Comment NORMAL Ovalocytes 1+ Prothrombin Time 11.4 SEC Prothromb Time International 1.0 RATIO Ratio D-Dimer Quantitative (PE/DVT) 0.24 MG/L FEU Sodium Level 137 MEQ/L Potassium Level 3.6 MEQ/L Chloride Level 102 MEQ/L Carbon Dioxide Level 25.9 MEQ/L Anion Gap 9 MEQ/L Blood Urea Nitrogen 7 MG/DL Creatinine 0.68 MG/DL Estimat Glomerular Filtration 122 ML/MIN Rate Random Glucose 197 MG/DL Calcium Level 9.0 MG/DL Magnesium Level 1.9 MG/DL Troponin I 0.02 NG/ML [facility] Medical Decision Making Medical Screen Exam Complete: Yes Emergency Medical Condition: Yes Medical Record Reviewed: Yes Interpretation(s) Twelve-lead EKG was reviewed by me. Normal sinus rhythm, normal axis, tachycardia, nonspecific ST-T wave changes. Heart rate of 110 bpm. Differential Diagnosis Acute asthma exacerbation, PE, ACS Narrative Course 10:38 PM awaiting for the blood test results. Chest x-rays within normal limit. Patient was given 3 duo nebs [id number] and IV Solu-Medrol. Reassess her in a bit. 11:03 PM I just reassessed her and her breathing has significantly improved. Patient says she still has some pain on the left side of her chest. Blood test results of back and within normal limit. Awaiting for d-dimer. I have ordered IV Toradol for her. If the d-dimer is within normal limit patient will be discharged home. 11:21 PM d-dimer is within normal limit. I'll discharge her home at this point. Patient continues to be tachycardic although little better than when she first came in. Probably related to the beta agonist that were used for her asthma. Procedures EKG Prior to Arrival: No Diagnosis Primary Impression: Acute asthma exacerbation Qualified Code: J45.41 - Moderate persistent asthma with acute exacerbation Additional Impressions: Chest pain Qualified Code: R07.9 - Chest pain, unspecified type Sinus tachycardia Referrals: Primary Care Physician 2 days Additional Instructions: Please return to the ER if the condition worsens or any other new concerns. Otherwise follow-up with your primary care in couple days. Take the medication as per the prescription direction. Use your inhaler 2 puffs every 4-6 hours for next 48 hours. Med/Other Pt SpecificInfo: Prescription(s) given Scripts Prednisone 20 Mg Tab20 Mg PO BID 5 Days Ref 0 Prov:Sarai Stafford MD 01/15/17 Disposition: 01 DISCHARGE HOME Condition: Stable Sarai Stafford MD January 15, 2017 21:05
[2017-01-15] MEDS ORDERED: SODIUM CHLORIDE 0.9% FLUSH 10 ML FLUSH IV FLUSH PRN (21:30)
[2017-01-15] MEDS ORDERED: SODIUM CHLORIDE 0.9% FLUSH 10 ML FLUSH IVF PRN (21:30)
[2017-01-15] MEDS ORDERED: methylPREDNISolone SOD SUCC 125 MG/2 ML VIAL IV PUSH ONE (21:30)
[2017-01-15] MEDS ORDERED: predniSONE 20 MG TAB PO ONE (21:30)
[2017-01-15 21:35] VITALS: O2SAT 100
[2017-01-15] MEDS: RESP: ALBUTEROL 2.5 MG/IPRATROPIUM 0.5 MG NEB (SCH) INH (21:36)
--- NOTE | 2017-01-15 21:49 | RADRPT ---
EXAM DATE/TIME: 01/15/2017 21:38 [facility] COMPARISON: CHEST SINGLE AP, November 04, 2016, 18:44. INDICATIONS : Chest pain MEDICAL HISTORY : Asthma SURGICAL HISTORY : None. ENCOUNTER: Initial ACUITY: 1 day PAIN SCORE: 4/10 LOCATION: Bilateral chest FINDINGS: A single view of the chest demonstrates the lungs to be symmetrically aerated without evidence of mas s, infiltrate or effusion. The cardiomediastinal contours are unremarkable. Osseous structures are intact. CONCLUSION: No acute disease. Cuauhtemoc Sloan MD on January 15, 2017 at 21:47 Board Certified Radiologist. This report was verified electronically.
[2017-01-15 22:06] VITALS: BP 150/88; PULSE 118; RESP 18; RESP 21; O2SAT 100
[2017-01-15 22:12] VITALS: BP 150/88; PULSE 118; RESP 21; O2SAT 100
[2017-01-15 22:14] LABS: AUTOMATED NEUTROPHIL # 3.4 TH/MM3 (1.8-7.7); BASOPHIL % 0.2 % (0.0-2.0); EOSINOPHIL # 0.1 TH/MM3 (0-0.4); EOSINOPHIL % 1.4 % (0.0-4.0); LYMPH % 28.8 % (9.0-44.0); LYMPHOCYTE # 1.7 TH/MM3 (1.0-4.8); MEAN CELL VOLUME 76.5 FL (80.0-100.0); MEAN CORPUSCULAR HEMOGLOBIN 23.9 PG (27.0-34.0); MEAN CORPUSCULAR HGB CONC 31.3 % (32.0-36.0); NEUT % 59.6 % (16.0-70.0); PLATELET COUNT 208 TH/MM3 (150-450); RED BLOOD COUNT 4.83 MIL/MM3 (4.00-5.30); RED CELL DISTRIBUTION WIDTH 14.5 % (11.6-17.2); WHITE BLOOD COUNT 5.7 TH/MM3 (4.0-11.0)
[2017-01-15 22:31] LABS: HEMO FLAGS AUTO DIFF
[2017-01-15 22:35] LABS: BICARBONATE 25.9 MEQ/L (21.0-32.0); MAGNESIUM 1.9 MG/DL (1.5-2.5); POTASSIUM 3.6 MEQ/L (3.5-5.1)
[2017-01-15 22:45] LABS: OVALOCYTES 1+ (NORMAL); PLATELET ESTIMATE SMEAR NORMAL (NORMAL); PLATELET MORPHOLOGY NORMAL (NORMAL); SCAN/DIFF AUTO DIFF CONFIRMED
[2017-01-15 23:13] LABS: PROTHROMBIN TIME - PATIENT 11.4 SEC (9.8-11.6)
[2017-01-15] MEDS ORDERED: KETOROLAC TROMETHAMINE 30 MG/ML (IVP) VIAL IV PUSH ONE (23:15)
[2017-01-15] MEDS ORDERED: PRED20 PO (23:22)
--- NOTE | 2017-01-16 14:52 | EKG ---
Date Performed: 01/15/2017 Time Performed: 21:54:01 PTAGE: 31 years EKG: SINUS TACHYCARDIA MODERATE VOLTAGE CRITERIA FOR LVH, CONSIDER NORMAL VARIANT NONSPECIFIC ST & T-WAVE ABNORMALITY ABNORMAL RHYTHM ECG Compared to PREVIOUS TRACING sinus rate has increased PREVIOUS TRACIN12/25/2016 12.40 DOCTOR: Junior Osorio Interpretating Date/Time 01/16/2017 14:51:33
== END 2017-01-15 23:38 | disposition home or self-care (01) ==
LOC: NEPD 20:07
DX: J45.41 Moderate persistent asthma with (acute) exacerbation (principal); R07.9 Chest pain, unspecified; Z79.899 Other long term (current) drug therapy
CPT/HCPCS: 71010; 80048; 83735; 84484; 85025; 85379; 85610; 93005; 94640; 94664; 96374; 96375; 99285; J1885; J2930

== ENCOUNTER 2017-01-24 03:29 | Emergency (ER) | payer MEDICAID ==
[~2017-01-24 03:29] MED LIST changes: +PRED20 PO; -RANI150C PO
[2017-01-24 03:32] VITALS: BP 156/92; PULSE 114; RESP 16; TEMP 98.7; O2SAT 99
[2017-01-24] MEDS ORDERED: METOPROLOL TARTRATE 25 MG TAB PO ONE (04:00)
--- NOTE | 2017-01-24 04:00 | PD ---
HPI Chief Complaint: Remnants Cutter Problem/Complaint Time Seen by Provider: 03:41 Travel History International Travel<30 days: No Contact w/Intl Traveler<30days: No Traveled to known affect area: No History of Present Illness HPI The patient is a 31 year old female who presents to the [facility] emergency department with a history of vaginal irritation, burning, and itching that she reports began 2 days ago. The patient reports that she does have a white discharge associated with this, however she chronically has this type of discharge. She denies it being any worse than usual. She reports that she has been with the same female partner for the last 4 years. She reports that they are monogamous. She denies having any dysuria, hematuria, urinary urgency or frequency. She denies having any abdominal pain. She denies having any fevers or chills. The patient on arrival to the emergency department does report having some chest tightness and wheezing. She reports that she ran out of her pro-air inhaler and is almost out of her Symbicort. On review of systems, the patient denies any cough, congestion, neck pain, abdominal pain, vomiting, diarrhea, urinary symptoms, or neurologic symptoms. LMP: January 05, 2017 [facility] Past Medical History Narrative Medical The patient's past medical history is significant for hyperthyroidism. She reports that she is in the process of being referred to a new radiographic technologist area the patient was placed on metoprolol due to tachycardia and hyperthyroid disorder diagnosed during an admission for asthma exacerbation, however the metoprolol was not refilled recently by her primary care physician. The patient has a history of asthma. Asthma: Yes Heart Rhythm Problems: Yes (FAST HEART RATE - METOPROLOL) Diminished Hearing: No Respiratory: Yes (ASTHMA ) Thyroid Disease: Yes Tetanus Vaccination: > 5 Years Influenza Vaccination: No ?: Not LMP: 01/05/17 : 5 Para: 4 Miscarriage: 1 Tubal Ligation: Yes Past Surgical History Narrative Surgical The patient's past surgical history is significant for 2 prior C-sections, bilateral tubal ligation. Surgical History: No Previous Surgery Section: Yes (2) Social History Alcohol Use: Yes (OCC) Tobacco Use: No Substance Use: No Allergies-Medications (Allergen,Severity, Reaction): Coded Allergies: Iodine (Verified Allergy, Severe, 01/24/17) Latex (Verified Allergy, Severe, 01/24/17) Shellfish (Verified Allergy, Severe, 01/24/17) Reported Meds & Prescriptions Reported Meds & Active Scripts Active Metoprolol Tartrate 25 Mg Tab 25 Mg PO Q12HR Symbicort Inh (Budesonide/Formoterol Fumarate) 160-4.5 Mcg/Act Aero 1 Puff INH Q12HR Prednisone 20 Mg Tab 20 Mg PO BID 5 Days Zofran Odt (Ondansetron Odt) 4 Mg Tab 4 Mg SL Q8HR PRN May substitute non-ODT form. Nebulizer 1 Mis Mis 1 Ea .ROUTE DIRECTED Duoneb (Ipratropium-Albuterol Neb) 0.5-2.5 Mg/3 Ml Neb 1 Ampule NEB Q6HR PRN Review of Systems Except as stated in HPI: all other systems reviewed are Neg General / Constitutional: No: Fever Eyes: No: Visual changes HENT: No: Headaches Cardiovascular: Positive: Chest Pain or Discomfort (chest tightness), Dyspnea on exertion Respiratory: Positive: Wheezing, No: Shortness of Breath Gastrointestinal: No: Nausea, Vomiting, Diarrhea, Abdominal Pain Genitourinary: Positive: Discharge, Other (vaginal irritation), No: Dysuria, Pelvic Pain Musculoskeletal: No: Pain Skin: No Rash Neurologic: No: Weakness, Focal Abnormalities, Change in Mentation, Slurred Speech Psychiatric: No: Depression Endocrine: No: Polydipsia Hematologic/Lymphatic: No: Easy Bruising Physical Exam Narrative General: The patient is a well-developed well-nourished female in no acute distress. Head and Neck exam: Head is normocephalic atraumatic. Eyes: EOMI, pupils are equal round and reactive to light. Nose: Midline septum with pink mucous membranes Mouth: Dentition unremarkable. Moist mucus membranes. Posterior oropharynx is not erythematous. No tonsillar hypertrophy. Uvula midline. Airway patent. Neck: No palpable lymphadenopathy. No nuchal rigidity. The patient has thyroid enlargement on palpation. She reports that she recently underwent an ultrasound regarding this. Cardiovascular: Sinus tachycardia in the 1 teens to 120s without murmurs, gallops, or rubs. No pulse deficit to the extremities, simultaneous auscultation and palpation of her radial artery. Lungs: Soft expiratory wheezes are audible. No rhonchi, no crackles. No accessory muscle use. No paroxysmal abdominal breathing. No tripoding. Abdomen: Soft, without tenderness to palpation in all 4 quadrants of the abdomen. No guarding, rebound, or rigidity. Normal bowel sounds are audible. No tenderness on palpation of McBurney's point. Negative Shook's sign. Extremities: No clubbing or cyanosis. The patient has trace to 1+ edema bilateral lower extremities. She reports that this is chronic and comes and goes. 2+ pulses in all 4 extremities. Back: No costovertebral angle tenderness to palpation. Neurologic Exam: Grossly nonfocal. Skin Exam: No rash noted. Intact skin that is warm and dry. Gynecologic exam: The patient was placed in the dorsal lithotomy position. Her external genitalia were examined. She had no evidence of lesions, however she had irritation, erythema noted along the labia minora. The speculum was placed into her vagina and the cervix was identified. She had a physiologic appearing clear white discharge. No cervical friability. On Bimanual exam: she has no cervical motion tenderness. No adnexal tenderness or prominence noted on palpation. No uterine tenderness or enlargement noted on palpation. Data Data Last Documented VS Vital Signs Date Time Temp Pulse Resp B/P Pulse Ox O2 Delivery O2 Flow Rate FiO2 01/24/17 03:36 22 01/24/17 03:32 98.7 114 156/92 99 Orders Gc And Chlamydia Pcr (01/24/17 03:43) Wet Prep Profile (01/24/17 03:43) Urinalysis - C+S If Indicated (01/24/17 03:43) Ed Urine Pregnancytest Poc (01/24/17 03:43) Metoprolol Tartrate (Lopressor) (01/24/17 04:00) Sodium Chloride 0.9% Flush (Ns Flush) (01/24/17 04:30) Albuterol-Ipratropium Neb (Duoneb Neb) (01/24/17 04:30) Labs Laboratory Tests Test 01/24/17 01/24/17 03:35 04:00 Urine Color YELLOW Urine Turbidity HAZY Urine pH 5.5 Urine Specific [place] 1.034 Urine Protein 30 mg/dL Urine Glucose (UA) TRACE mg/dL Urine Ketones NEG mg/dL Urine Occult Blood TRACE Urine Nitrite NEG Urine Bilirubin NEG Urine Urobilinogen 2.0 MG/DL Urine Leukocyte Esterase NEG Urine RBC 2 /hpf Urine WBC 1 /hpf Urine Squamous Epithelial 4 /hpf Cells Urine Bacteria RARE /hpf Urine Mucus MANY /lpf Microscopic Urinalysis Comment CULT NOT INDICATED Clue Cells (Wet Prep) NS Vaginal Trichomonas (Wet Prep) NS Vaginal Yeast (Wet Prep) NS MDM Medical Decision Making Medical Screen Exam Complete: Yes Emergency Medical Condition: Yes Medical Record Reviewed: Yes Differential Diagnosis Yeast vaginitis, versus trichomoniasis, versus gonorrhea, versus chlamydia Narrative Course During the course of the patients emergency department visit, the patients history, examination, and differential diagnosis were reviewed with the patient. The patient had a wet prep, GC and chlamydia, urinalysis, bedside test ordered. The patient was incidentally noted on arrival to be tachycardic and reports that she is out of the metoprolol that she was previously prescribed. The patient also has a blood pressure in the 150s systolic. The patient incidentally also reports that she is out of her pro-air inhaler and nearly out of her Symbicort. The patient was initially provided metoprolol 25 mg by mouth 1, DuoNeb 1. The patients laboratory studies were reviewed and remarkable for wet prep was unremarkable. However, given the patient's symptoms of patient will be treated with Diflucan. The patient's heart rate and blood pressure improved with the administration of metoprolol. The patient was resting comfortably. The patient will be discharged home with a prescription for Diflucan, metoprolol , pro-air, and Symbicort. The patient was instructed regarding the importance of following up with an radiographic technologist as soon as possible for definitive treatment of her hyperthyroid disorder. The patient is resting comfortably and feels better, is alert and in no distress. The patients results and examination findings were discussed with the patient. The repeat examination is unremarkable and benign. The history, exam, diagnostic testing, and current condition do not suggest any significant pathology to warrant further testing, continued ED treatment, admission, or surgical evaluation at this point. The vital signs have been stable. The patient does not have uncontrollable pain, intractable vomiting, or other significant symptoms. The patient's condition is stable and appropriate for discharge. The patient will pursue further outpatient evaluation with a primary care physician or other designated or consulting physician as indicated in the discharge instructions. The patient expressed understanding and was agreeable with this plan. Diagnosis Primary Impression: Sinus tachycardia Additional Impressions: Hyperthyroidism Vaginitis Qualified Code: N76.0 - Acute vaginitis Referrals: Post Acute Care Registered Nurse Primary Care Physician 2 days Patient Instructions: General Instructions, Hyperthyroidism (ED), Vaginitis (ED ) Med/Other Pt SpecificInfo: Prescription(s) given Scripts Fluconazole (Diflucan)150 Mg [id number] Mg PO ONCE #1 TAB Ref 0 Prov:Sheri Diamond MD 01/24/17 Albuterol Powder Inh (Proair Respiclick Inh)90 Mcg/Act Aerp2 Puff INH Q4-6H PRN (SHORTNESS OF BREATH) #1 INHALER Ref 0 Prov:Sheri Diamond MD 01/24/17 Metoprolol Tartrate 25 Mg Tab25 Mg PO Q12HR #60 TAB Prov:Sheri Diamond MD 01/24/17 Budesonide-Formoterol Inh (Symbicort Inh)160-4.5 Mcg/Act Aero1 Puff INH Q12HR # 1 INHALER Prov:Sheri Diamond MD 01/24/17 Disposition: 01 DISCHARGE HOME Condition: Stable Sheri Diamond MD January 24, 2017 04:00
[2017-01-24 04:07] LABS: BACTERIA, URINE RARE /hpf; BLOOD, URINE TRACE (NEG); COMMENT (UR) CULT NOT INDICATED; CULTURE IF INDICATED CULT NOT INDICATED; GLUCOSE,URINE TRACE mg/dL (NEG); KETONE, URINE NEG (NEG); MUCUS URINE MANY /lpf (OCC); NITRITE,URINE NEG (NEG); PH, URINE 5.5 (5.0-8.5); SQUAMOUS EPITHELIAL CELL URINE 4 /hpf (0-5); URINE COLOR YELLOW (YELLW/STRAW)
[2017-01-24] MEDS ORDERED: SYMB160A INH (04:08)
[2017-01-24] MEDS ORDERED: METO25TA3 PO (04:08)
[2017-01-24] MEDS ORDERED: ALBU1AER5 INH (04:08)
[2017-01-24] MEDS ORDERED: SODIUM CHLORIDE 0.9% FLUSH 10 ML FLUSH IVF PRN (04:30)
[2017-01-24] MEDS ORDERED: RESP: ALBUTEROL 2.5 MG/IPRATROPIUM 0.5 MG NEB (SCH) INH ONE (04:30)
[2017-01-24] MEDS ORDERED: DIFL150T PO (05:20)
[2017-01-24 05:49] VITALS: BP 139/72
[2017-01-24 07:03] LABS: CHLAMYDIA PCR NOT DETECTED (NOT DETECT); NEISSERIA PCR NOT DETECTED (NOT DETECT)
== END 2017-01-24 06:44 | disposition home or self-care (01) ==
LOC: NEPE 03:29
DX: R00.0 Tachycardia, unspecified (principal); N76.0 Acute vaginitis; E05.90 Thyrotoxicosis, unspecified without thyrotoxic crisis or storm; J45.909 Unspecified asthma, uncomplicated
CPT/HCPCS: 81001; 84703; 87210; 87491; 87591; 94664; 99284

== ENCOUNTER 2017-04-20 20:18 | Emergency (ER) | payer MEDICAID ==
[~2017-04-20] VITALS: Ht 160 cm; Wt 100.0 kg
[~2017-04-20 20:18] MED LIST changes: +ALBU1AER5 INH; +DIFL150T PO
[2017-04-20 20:20] VITALS: BP 144/85; PULSE 118; RESP 18; TEMP 98.1; O2SAT 99
--- NOTE | 2017-04-20 20:25 | PD ---
Physical Exam Time Seen by Provider: 20:24 Narrative 31 y/o female with intermittent pinching CP which started this morning. Vital signs reviewed. Seen at triage desk. Awaiting bed placement. Data Data Last Documented VS Vital Signs Date Time Temp Pulse Resp B/P Pulse Ox O2 Delivery O2 Flow Rate FiO2 04/20/17 20:20 98.1 118 18 144/85 99 MDM Medical Record Reviewed: Yes Supervised Visit with WINSTON: Osbaldo Varghese Apr 20, 2017 20:25
[2017-04-20 22:30] VITALS: RESP 16; O2SAT 99
[2017-04-20] MEDS: ASPIRIN 325 MG TAB PO ONE ×2 (23:00→23:02)
[2017-04-20] MEDS ORDERED: SODIUM CHLORIDE 0.9% FLUSH 10 ML FLUSH IVF PRN (23:00)
[2017-04-20 23:10] LABS: AUTOMATED NEUTROPHIL # 4.5 TH/MM3 (1.8-7.7); BASOPHIL % 0.2 % (0.0-2.0); EOSINOPHIL # 0.1 TH/MM3 (0-0.4); EOSINOPHIL % 0.7 % (0.0-4.0); HEMATOCRIT 34.3 % (35.0-46.0); HEMO FLAGS DIFF FINAL; LYMPH % 28.3 % (9.0-44.0); LYMPHOCYTE # 2.1 TH/MM3 (1.0-4.8); MEAN CELL VOLUME 76.1 FL (80.0-100.0); MEAN CORPUSCULAR HEMOGLOBIN 24.6 PG (27.0-34.0); MEAN CORPUSCULAR HGB CONC 32.3 % (32.0-36.0); MONO % 10.7 % (0.0-8.0); NEUT % 60.1 % (16.0-70.0); PLATELET COUNT 180 TH/MM3 (150-450); RED BLOOD COUNT 4.51 MIL/MM3 (4.00-5.30); RED CELL DISTRIBUTION WIDTH 13.7 % (11.6-17.2); WHITE BLOOD COUNT 7.5 TH/MM3 (4.0-11.0)
--- NOTE | 2017-04-20 23:17 | PD ---
HPI . Left sided chest pain Chief Complaint: Chest Pain Time Seen by Provider: 22:27 Travel History International Travel<30 days: No Contact w/Intl Traveler<30days: No Traveled to known affect area: No History of Present Illness HPI This is a 31 year old female who presents with 1 day of left sided chest pain. The pain began this morning and is located on the left anterior chest wall below her breast. The pain is constant, non radiating and described as a pinching sensation. She rates it a 10/10 and now 7/10 after Ibuprofen. It is pleuritic in nature but not associated with any SOB, cough, nausea, vomiting, abdominal or epigastric pain or diaphoresis. She had a similar episode when she last presented to the ED for acute asthma exacerbation. She reports a history of a asthma, hyperthyroid and tachyarrhythmia treated with Metoprolol taken 2x daily. She took one dose this morning. She is allergic to aspirin, latex, shellfish and iodine. She does not consume alcohol and does not use tobacco products. She has an extensive family history of heart disease. PFSH Past Medical History Asthma: Yes Heart Rhythm Problems: Yes (FAST HEART RATE - METOPROLOL) Diminished Hearing: No Respiratory: Yes Thyroid Disease: Yes ?: Not LMP: 03/27/17 : 5 Para: 4 Miscarriage: 1 Tubal Ligation: Yes Past Surgical History Section: Yes (2) Social History Alcohol Use: Yes (OCC) Tobacco Use: No Substance Use: No Allergies-Medications (Allergen,Severity, Reaction): Coded Allergies: iodine (Verified Allergy, Severe, 04/20/17) latex (Verified Allergy, Severe, 04/20/17) potassium iodide (Verified Allergy, Severe, 04/20/17) povidone-iodine (Verified Allergy, Severe, 04/20/17) shellfish derived (Verified Allergy, Severe, 04/20/17) sodium iodide (Verified Allergy, Severe, 04/20/17) sodium iodide (Verified Allergy, Severe, 04/20/17) aspirin (Verified Allergy, Intermediate, 04/20/17) Reported Meds & Prescriptions Reported Meds & Active Scripts Active Proair Respiclick Inh (Albuterol Sulfate) 90 Mcg/Act Aerp 2 Puff INH Q4-6H PRN Metoprolol Tartrate 25 Mg Tab 25 Mg PO Q12HR Symbicort Inh (Budesonide/Formoterol Fumarate) 160-4.5 Mcg/Act Aero 1 Puff INH Q12HR Nebulizer 1 Mis Mis 1 Ea .ROUTE DIRECTED Duoneb (Ipratropium-Albuterol Neb) 0.5-2.5 Mg/3 Ml Neb 1 Ampule NEB Q6HR PRN Review of Systems Except as stated in HPI: all other systems reviewed are Neg General / Constitutional: Positive: Weight Gain (25lbs last year), No: Fever, Chills, Weight Loss Eyes: No: Blurred Vision HENT: No: Headaches Cardiovascular: Positive: Chest Pain or Discomfort, Tachycardia, Edema ( occasional peripheral edema), No: Syncope, Dyspnea on exertion Respiratory: No: Cough, Shortness of Breath, Wheezing Gastrointestinal: No: Nausea, Vomiting, Diarrhea, Abdominal Pain, Constipation , Changes in Bowel Habits Genitourinary: No: Urgency, Frequency Skin: No Rash Neurologic: No: Weakness, Dizziness Physical Exam Narrative GENERAL: The patient was examined at bedside. She was sitting comfortably in no acute distress, she was alert and oriented x3. SKIN: Warm and dry. HEAD: Atraumatic. Normocephalic. EYES: Pupils equal and round. No proptosis ENT: No nasal bleeding or discharge. Mucous membranes pink and moist. NECK: Trachea midline. Thyroid normal. No goiter CARDIOVASCULAR: Tachycardic, no murmurs or extra beats RESPIRATORY: No accessory muscle use. Clear breath sounds bilaterally. No wheezing heard on exam GASTROINTESTINAL: Abdomen soft, non-tender, nondistended. No epigastric tenderness MUSCULOSKELETAL: No obvious deformities. No edema. Mild left chest wall tenderness NEUROLOGICAL: Awake and alert. No obvious cranial nerve deficits. Motor grossly within normal limits. Normal speech. No tremor PSYCHIATRIC: Appropriate mood and affect; insight and judgment normal. Data Data Last Documented VS Vital Signs Date Time Temp Pulse Resp B/P Pulse Ox O2 Delivery O2 Flow Rate FiO2 04/20/17 20:20 98.1 118 18 144/85 99 Orders Electrocardiogram (04/20/17 20:26) Basic Metabolic Panel (Bmp) (04/20/17 22:48) Ckmb (Isoenzyme) Profile (04/20/17 22:48) Complete Blood Count With Diff (04/20/17 22:48) D-Dimer (04/20/17 22:48) Magnesium (Mg) (04/20/17 22:48) Troponin I (04/20/17 22:48) Chest, Single Ap (04/20/17 22:48) Ecg Monitoring (04/20/17 22:48) Iv Access Insert/Monitor (04/20/17 22:48) Oximetry (04/20/17 22:48) Aspirin (Aspirin) (04/20/17 23:00) Sodium Chloride 0.9% Flush (Ns Flush) (04/20/17 23:00) Thyroid Stimulating Hormone (04/20/17 22:48) Labs Laboratory Tests Test 04/20/17 23:00 White Blood Count 7.5 TH/MM3 Red Blood Count 4.51 MIL/MM3 Hemoglobin 11.1 GM/DL Hematocrit 34.3 % Mean Corpuscular Volume 76.1 FL Mean Corpuscular Hemoglobin 24.6 PG Mean Corpuscular Hemoglobin 32.3 % Concent Red Cell Distribution Width 13.7 % Platelet Count 180 TH/MM3 Mean Platelet Volume 10.3 FL Neutrophils (%) (Auto) 60.1 % Lymphocytes (%) (Auto) 28.3 % Monocytes (%) (Auto) 10.7 % Eosinophils (%) (Auto) 0.7 % Basophils (%) (Auto) 0.2 % Neutrophils # (Auto) 4.5 TH/MM3 Lymphocytes # (Auto) 2.1 TH/MM3 Monocytes # (Auto) 0.8 TH/MM3 Eosinophils # (Auto) 0.1 TH/MM3 Basophils # (Auto) 0.0 TH/MM3 CBC Comment DIFF FINAL Differential Comment D-Dimer Quantitative (PE/DVT) 0.29 MG/L FEU Sodium Level 140 MEQ/L Potassium Level 3.8 MEQ/L Chloride Level 105 MEQ/L Carbon Dioxide Level 28.1 MEQ/L Anion Gap 7 MEQ/L Blood Urea Nitrogen 10 MG/DL Creatinine 0.56 MG/DL Estimat Glomerular Filtration 153 ML/MIN Rate Random Glucose 96 MG/DL Calcium Level 8.8 MG/DL Magnesium Level 1.9 MG/DL Total Creatine Kinase 76 U/L Troponin I 0.03 NG/ML Thyroid Stimulating Hormone LESS THAN 3rd Gen 0.005 uIU/ML MDM Medical Decision Making Medical Screen Exam Complete: Yes Emergency Medical Condition: Yes Medical Record Reviewed: Yes (Previous ER visit on 01/15/17 with similar symptoms, she was treated for acute asthma exacerbation ) Differential Diagnosis Tachycardia, pulmonary embolism, anxiety, hyperthyroid, acute coronary syndrome , pleurisy, costochondritis Narrative Course This is a 31 year-old female who presents with left-sided chest pain. She's had similar symptoms and was treated for asthma in the past. She has a current heart rate of 112 and an EKG consistent with sinus tachycardia. The pain has been partially relieved with ibuprofen. Thyroid study and a d-dimer was ordered. CBC & BMP Diagram 04/20/17 23:00 Cardiac enzymes are negative. D-dimer is normal. TSH is low at less than 0.0005. Last Impressions Chest X-Ray 04/20/177 Signed Impressions: Service Date/Time: Thursday, April 20, 2017 23:11 - CONCLUSION: No acute disease. Laith Boogie MD This patient's most likely etiology for her symptoms is hyperthyroidism. We will increase her dose of metoprolol. She has never been evaluated by endocrinology. She will follow-up with her primary care physician as soon as possible for referral to endocrinology. Diagnosis Primary Impression: Chest pain Qualified Code: R07.9 - Chest pain, unspecified type Additional Impression: Hyperthyroidism Med/Other Pt SpecificInfo: Existing Med Changed Scripts Metoprolol Tartrate 25 Mg Tab50 Mg PO Q12HR #60 TAB Prov:Arianna Martinez MD 04/21/17 Disposition: 01 DISCHARGE HOME Condition: Stable Arianna Martinez MD Apr 20, 2017 23:17
--- NOTE | 2017-04-20 23:18 | RADRPT ---
EXAM DATE/TIME: 04/20/2017 23:11 [facility] COMPARISON: CHEST SINGLE AP, January 15, 2017, 21:38. INDICATIONS : Chest pain MEDICAL HISTORY : Hyperthyroidism. Asthma SURGICAL HISTORY : None. ENCOUNTER: Initial ACUITY: 1 day PAIN SCORE: 6/10 LOCATION: Bilateral chest FINDINGS: A single view of the chest demonstrates the lungs to be symmetrically aerated without evidence of mas s, infiltrate or effusion. The cardiomediastinal contours are unremarkable. Osseous structures are intact. CONCLUSION: No acute disease. Laith Boogie MD on April 20, 2017 at 23:16 Board Certified Radiologist. This report was verified electronically.
[2017-04-20 23:27] LABS: ANION GAP 7 MEQ/L (5-15); BICARBONATE 28.1 MEQ/L (21.0-32.0); BLOOD UREA NITROGEN 10 MG/DL (7-18); CHLORIDE 105 MEQ/L (98-107); GLOMERULAR FILTRATION RATE 153 ML/MIN (>89); MAGNESIUM 1.9 MG/DL (1.5-2.5); POTASSIUM 3.8 MEQ/L (3.5-5.1); SODIUM (NA) 140 MEQ/L (136-145)
[2017-04-20 23:44] LABS: CREATINE KINASE 76 U/L (26-192)
[2017-04-21] VITALS: BP 135/80; PULSE 104; RESP 18; O2SAT 98
[2017-04-21] MEDS ORDERED: METO25TA3 PO (00:16)
--- NOTE | 2017-04-21 14:50 | EKG ---
Date Performed: 04/20/2017 Time Performed: 20:32:11 PTAGE: 31 years EKG: SINUS TACHYCARDIA MODERATE VOLTAGE CRITERIA FOR LVH, CONSIDER NORMAL VARIANT NONSPECIFIC T- WAVE ABNORMALITY ABNORMAL RHYTHM ECG PREVIOUS TRACING : 01/15/2017 21.54 Since previous tracing, no significant change noted DOCTOR: Rusty Garcia Interpretating Date/Time 04/21/2017 14:49:50
== END 2017-04-21 00:39 | disposition home or self-care (01) ==
LOC: NEPC 20:18
DX: R07.9 Chest pain, unspecified (principal); E05.90 Thyrotoxicosis, unspecified without thyrotoxic crisis or storm; R00.0 Tachycardia, unspecified; R94.31 Abnormal electrocardiogram [ECG] [EKG]; J45.909 Unspecified asthma, uncomplicated; E07.9 Disorder of thyroid, unspecified; Z79.899 Other long term (current) drug therapy
CPT/HCPCS: 71010; 80048; 82550; 83735; 84443; 84484; 85025; 85379; 93005; 99285

== ENCOUNTER 2017-09-12 04:03 | Emergency (ER) | payer MEDICAID ==
[~2017-09-12] VITALS: Ht 160 cm; Wt 97.5 kg
[~2017-09-12 04:03] MED LIST changes: -DIFL150T PO; -PRED20 PO; -ZOFR4TAB3 SL
[2017-09-12 04:04] VITALS: BP 133/82; PULSE 106; RESP 16; TEMP 98.3; O2SAT 97
[2017-09-12] MEDS ORDERED: [UNRECOGNIZED DRUG - REMARK] PO (04:14)
[2017-09-12] MEDS ORDERED: [UNRECOGNIZED DRUG - REMARK] PO (04:14)
[2017-09-12 05:04] LABS: AUTOMATED NEUTROPHIL # 2.7 TH/MM3 (1.8-7.7); BASOPHIL % 0.2 % (0.0-2.0); EOSINOPHIL # 0.1 TH/MM3 (0-0.4); EOSINOPHIL % 1.4 % (0.0-4.0); HEMATOCRIT 34.6 % (35.0-46.0); HEMOGLOBIN 11.4 GM/DL (11.6-15.3); LYMPH % 40.9 % (9.0-44.0); LYMPHOCYTE # 2.3 TH/MM3 (1.0-4.8); MEAN CORPUSCULAR HEMOGLOBIN 25.3 PG (27.0-34.0); MEAN CORPUSCULAR HGB CONC 32.9 % (32.0-36.0); MEAN PLATELET VOLUME 9.7 FL (7.0-11.0); MONO % 9.7 % (0.0-8.0); MONOCYTE # 0.6 TH/MM3 (0-0.9); NEUT % 47.8 % (16.0-70.0); PLATELET COUNT 199 TH/MM3 (150-450); RED CELL DISTRIBUTION WIDTH 14.4 % (11.6-17.2); WHITE BLOOD COUNT 5.7 TH/MM3 (4.0-11.0)
[2017-09-12 05:20] LABS: ALT (GPT) 17 U/L (10-53); AST (GOT) 16 U/L (15-37); BICARBONATE 26.7 MEQ/L (21.0-32.0); BLOOD UREA NITROGEN 7 MG/DL (7-18); CALCIUM 8.8 MG/DL (8.5-10.1); CHLORIDE 104 MEQ/L (98-107); CREATININE 0.46 MG/DL (0.50-1.00); GLOMERULAR FILTRATION RATE 190 ML/MIN (>89); GLUCOSE,RANDOM 124 MG/DL (74-106); SODIUM (NA) 138 MEQ/L (136-145)
[2017-09-12 05:21] LABS: ALKALINE PHOSPHATASE 125 U/L (45-117); TOTAL BILIRUBIN ADULT 0.3 MG/DL (0.2-1.0); TOTAL PROTEIN 7.7 GM/DL (6.4-8.2)
--- NOTE | 2017-09-12 07:34 | PD ---
HPI Chief Complaint: Fall Time Seen by Provider: 07:20 Travel History International Travel<30 days: No Contact w/Intl Traveler<30days: No Traveled to known affect area: No History of Present Illness HPI s/p fall, mechanical trip and fall, hit back of head on way down. no presyncope type of symptoms, no alleviating/aggravating factor. denies assoc factors of visual changes/fever/n/v/cp/abd pain/extremity or back pain. no localized weakness or numbness. all:iodine (all to shellfish, rash) and ASA (n/v) pmhx: only significant for hyperactive thyroid , enlarged thyroid (in process of getting ultrasound for further characterization).. pshx: btl PFSH Past Medical History Asthma: Yes Heart Rhythm Problems: Yes (FAST HEART RATE - METOPROLOL) Diminished Hearing: No Respiratory: Yes (Asthma) Thyroid Disease: Yes (Hypo) Tetanus Vaccination: < 5 Years Influenza Vaccination: No ?: Not LMP: 08/27/17 : 5 Para: 4 Miscarriage: 1 Tubal Ligation: Yes Past Surgical History Section: Yes (2) Social History Alcohol Use: Yes (OCC) Tobacco Use: No Substance Use: No Allergies-Medications (Allergen,Severity, Reaction): Coded Allergies: iodine (Verified Allergy, Severe, 04/20/17) latex (Verified Allergy, Severe, 04/20/17) potassium iodide (Verified Allergy, Severe, 04/20/17) povidone-iodine (Verified Allergy, Severe, 04/20/17) shellfish derived (Verified Allergy, Severe, 04/20/17) sodium iodide (Verified Allergy, Severe, 04/20/17) sodium iodide (Verified Allergy, Severe, 04/20/17) aspirin (Verified Allergy, Intermediate, 04/20/17) Reported Meds & Prescriptions Reported Meds & Active Scripts Active Proair Respiclick Inh (Albuterol Sulfate) 90 Mcg/Act Aerp 2 Puff INH Q4-6H PRN Symbicort Inh (Budesonide/Formoterol Fumarate) 160-4.5 Mcg/Act Aero 1 Puff INH Q12HR Nebulizer 1 Mis Mis 1 Ea .ROUTE DIRECTED Reported [iron pill] 1 Tab PO DAILY [thyroid pill] 1 Tab PO DAILY Review of Systems Except as stated in HPI: all other systems reviewed are Neg General / Constitutional: No: Fever Eyes: No: Visual changes HENT: Positive: Lightheadedness Cardiovascular: No: Chest Pain or Discomfort Respiratory: No: Shortness of Breath Gastrointestinal: No: Abdominal Pain Genitourinary: No: Dysuria Musculoskeletal: No: Pain Skin: No Rash Neurologic: No: Weakness Psychiatric: No: Depression Endocrine: No: Polydipsia Hematologic/Lymphatic: No: Easy Bruising Physical Exam Narrative GENERAL: SKIN: Warm and dry. HEAD: Atraumatic. Normocephalic. EYES: Pupils equal and round. No scleral icterus. No injection or drainage. ENT: No nasal bleeding or discharge. Mucous membranes pink and moist. no hemotympanum NECK: Trachea midline. No JVD. CARDIOVASCULAR: Regular rate and rhythm. RESPIRATORY: No accessory muscle use. Clear to auscultation. Breath sounds equal bilaterally. GASTROINTESTINAL: Abdomen soft, non-tender, nondistended. MUSCULOSKELETAL: Extremities without clubbing, cyanosis, or edema. No obvious deformities. NEUROLOGICAL: Awake and alert. No obvious cranial nerve deficits. Motor grossly within normal limits. Five out of 5 muscle strength in the arms and legs. Normal speech. PSYCHIATRIC: Appropriate mood and affect; insight and judgment normal. Data Data Last Documented VS Vital Signs Date Time Temp Pulse Resp B/P (MAP) Pulse Ox O2 Delivery O2 Flow Rate FiO2 09/12/17 04:04 98.3 106 16 133/82 (99) 97 Room Air Orders Orders Electrocardiogram (09/12/17 04:14) Complete Blood Count With Diff (09/12/17 04:14) Comprehensive Metabolic Panel (09/12/17 04:14) Iv Access Insert/Monitor (09/12/17 04:14) Ct Brain W/O Iv Contrast(Rout) (09/12/17 07:21) Ed Urine Pregnancytest Poc (09/12/17 07:38) Labs Laboratory Tests Test 09/12/17 04:45 White Blood Count 5.7 TH/MM3 Red Blood Count 4.50 MIL/MM3 Hemoglobin 11.4 GM/DL Hematocrit 34.6 % Mean Corpuscular Volume 77.0 FL Mean Corpuscular Hemoglobin 25.3 PG Mean Corpuscular Hemoglobin Concent 32.9 % Red Cell Distribution Width 14.4 % Platelet Count 199 TH/MM3 Mean Platelet Volume 9.7 FL Neutrophils (%) (Auto) 47.8 % Lymphocytes (%) (Auto) 40.9 % Monocytes (%) (Auto) 9.7 % Eosinophils (%) (Auto) 1.4 % Basophils (%) (Auto) 0.2 % Neutrophils # (Auto) 2.7 TH/MM3 Lymphocytes # (Auto) 2.3 TH/MM3 Monocytes # (Auto) 0.6 TH/MM3 Eosinophils # (Auto) 0.1 TH/MM3 Basophils # (Auto) 0.0 TH/MM3 CBC Comment DIFF FINAL Differential Comment Blood Urea Nitrogen 7 MG/DL Creatinine 0.46 MG/DL Random Glucose 124 MG/DL Total Protein 7.7 GM/DL Albumin 3.0 GM/DL Calcium Level 8.8 MG/DL Alkaline Phosphatase 125 U/L Aspartate Amino Transf (AST/SGOT) 16 U/L Alanine Aminotransferase (ALT/SGPT) 17 U/L Total Bilirubin 0.3 MG/DL Sodium Level 138 MEQ/L Potassium Level 3.7 MEQ/L Chloride Level 104 MEQ/L Carbon Dioxide Level 26.7 MEQ/L Anion Gap 7 MEQ/L Estimat Glomerular Filtration Rate 190 ML/MIN MDM Medical Decision Making Medical Screen Exam Complete: Yes Emergency Medical Condition: Yes Medical Record Reviewed: Yes Differential Diagnosis ich v skull fx v bht v anemia v electrolyte Narrative Course nl cbc, nl cmp, ct head neg ich and nl skull exam Diagnosis Primary Impression: Concussion Qualified Codes: S06.0X0A - Concussion without loss of consciousness, initial encounter Patient Instructions: General Instructions, Post Concussion Syndrome (ED) Disposition: 01 DISCHARGE HOME Condition: Stable Alvaro Perkins MD Sep 12, 2017 07:34
--- NOTE | 2017-09-12 08:17 | RADRPT ---
EXAM DATE/TIME: 09/12/2017 07:54 [facility] COMPARISON: No previous studies available for comparison. INDICATIONS : Fell, hit back of head, weakness, Dizziness RADIATION DOSE: 56.35 CTDIvol (mGy) MEDICAL HISTORY : None SURGICAL HISTORY : Tubal ligation. ENCOUNTER: Initial ACUITY: 1 day PAIN SCALE: 7/10 LOCATION: cranial TECHNIQUE: Multiple contiguous axial images were obtained of the head. Using automated exposure control and adj ustment of the mA and/or kV according to patient size, radiation dose was kept as low as reasonably a chievable to obtain optimal diagnostic quality images. DICOM format image data is available electro nically for review and comparison. FINDINGS: CEREBRUM: The ventricles are normal for age. No evidence of midline shift, mass lesion, hemorrhage or acute in farction. No extra-axial fluid collections are seen. POSTERIOR FOSSA: The cerebellum and brainstem are intact. The 4th ventricle is midline. The cerebellopontine angle i s unremarkable. EXTRACRANIAL: The visualized portion of the orbits is intact. SKULL: The calvaria is intact. No evidence of skull fracture. CONCLUSION: Normal examination. Cuauhtemoc Sloan MD on September 12, 2017 at 8:14 Board Certified Radiologist. This report was verified electronically.
[2017-09-12 09:27] VITALS: BP 131/60
--- NOTE | 2017-09-12 21:18 | EKG ---
Date Performed: 09/12/2017 Time Performed: 04:40:28 PTAGE: 32 years EKG: Sinus rhythm VOLTAGE CRITERIA FOR LVH ABNORMAL ECG Compared to prior tracing no significant change DOCTOR: Keren Fang Interpretating Date/Time 09/12/2017 21:16:08
== END 2017-09-12 09:28 | disposition home or self-care (01) ==
LOC: NEPE 04:03
DX: S06.0X0A Concussion without loss of consciousness, initial encounter (principal); W01.0XXA Fall on same level from slipping, tripping and stumbling without subsequent striking against object, initial encounter; R94.31 Abnormal electrocardiogram [ECG] [EKG]; R42 Dizziness and giddiness; J45.909 Unspecified asthma, uncomplicated
CPT/HCPCS: 70450; 80053; 84703; 85025; 93005; 99285